=== PATIENT | female | born 1955 | race Caucasian/White ===

== ENCOUNTER 2020-03-08 10:42 | Observation (INO) | payer BC ==
[2020-03-08 12:05] LABS: Basophils # (A) 0.1 k/uL (0-0.2); Basophils % (A) 1 %; Eosinophils # (A) 0.1 k/uL (0-0.7); Eosinophils % (A) 2 %; HGB 14.6 gm/dL (11.4-16.0); Lymphocytes # (A) 1.7 k/uL (1.0-4.8); Lymphocytes % (A) 18 %; MCH 26.1 pg (25.0-35.0); MCHC 32.4 g/dL (31.0-37.0); MCV 80.8 fL (80.0-100.0); Mean Platelet Volume 7.4; Monocytes # (A) 0.5 k/uL (0-1.0); Monocytes % (A) 5 %; Neutrophils % (A) 74 %; Platelet Count 317 k/uL (150-450); RBC 5.57 m/uL (3.80-5.40); RDW 13.4 % (11.5-15.5); WBC 9.6 k/uL (3.8-10.6)
[2020-03-08] MEDS ORDERED: MECLIZINE 12.5 MG TAB PO STA (12:16)
[2020-03-08 12:18] LABS: ALT 21 U/L (4-34); AST 19 U/L (14-36); African American GFR (CKD) >90 (>60 ml/min/1.73 sqM); Albumin 3.9 g/dL (3.5-5.0); Alkaline Phosphatase 108 U/L (38-126); Anion Gap 10 mmol/L; Blood Urea Nitrogen 17 mg/dL (7-17); Calcium 9.1 mg/dL (8.4-10.2); Carbon Dioxide 26 mmol/L (22-30); Chloride 100 mmol/L (98-107); Glucose 322 mg/dL (74-99); Non-African American GFR(CKD) >90 (>60 ml/min/1.73 sqM); Potassium 3.9 mmol/L (3.5-5.1); Sodium 136 mmol/L (137-145); Total Bilirubin 0.6 mg/dL (0.2-1.3); Total Protein 6.4 g/dL (6.3-8.2)
[2020-03-08] MEDS ORDERED: SODIUM CHLORIDE 0.9% 1,000 ML IV ONE (12:41)
[2020-03-08] MEDS ORDERED: DIAZEPAM 5 MG/ML 2 ML INJ IVP STA (12:41)
--- NOTE | 2020-03-08 12:44 | ED ---
Dizziness HPI - General Chief Complaint: Dizziness Stated Complaint: dizzines, nausea Time Seen by Provider: 03/08/20 11:00 Source: patient Mode of arrival: wheelchair Limitations: no limitations - History of Present Illness Initial Comments: 64-year-old female presenting today for chief complaint of dizziness. Patient states that she has had a facial fullness instruments with seasonal ALLERGIES. She states that she feels as though her ears bilaterally are full she woke up this morning with dizziness when she moves her head proceed to standing position she denies lightheadedness or presyncope she states that she feels like she is going to fall and she walks but does not have a unsteady gait. She states she just does not like walking secondary to sensation of dizziness. She states she does feel like the room is spinning around her. Patient states there is associated nausea denies vomiting denies any headache diplopia vision loss or changes. She denies any sensation deficits of the upper or lower extremities weakness of the upper or lower extremities speech changes facial expression changes. Patient denies any recent falls or trauma to the head or neck. Patient denies additional complaints. Upon arrival she appears well there is no signs of acute distress. - Related Data Home Medications Medication Instructions Recorded Confirmed Azelastine HCl [Astepro] 1 spray NASAL DAILY 03/08/20 03/08/20 Cyclobenzaprine HCl 20 mg PO HS 03/08/20 03/08/20 Digest Spectrum 2 tab PO DAILY 03/08/20 03/08/20 Fluticasone Nasal [place] [Flonase 2 spr EA NOSTRIL DAILY 03/08/20 03/08/20 Nasal [place]] Levalbuterol Hfa Inhaler [Xopenex 1 puff INHALATION RT-Q6H PRN 03/08/20 03/08/20 Hfa Inhaler] Montelukast [Singulair] 10 mg PO HS 03/08/20 03/08/20 Multivitamin Ritual 2 tab PO DAILY 03/08/20 03/08/20 Naproxen Sodium [Aleve] 220 mg PO BID 03/08/20 03/08/20 Omeprazole 40 mg PO DAILY 03/08/20 03/08/20 Sodium Chloride [[place]] 1 spray EA NOSTRIL DAILY 03/08/20 03/08/20 Triamterene-Hctz 37.5-25Mg 1 cap PO DAILY 03/08/20 03/08/20 [Dyazide 37.5-25 Capsule] Allergies Allergy/AdvReac Type Severity Reaction Status Date / Time Penicillins Allergy Rash/Hives Verified 03/08/20 12:54 Review of Systems ROS Statement: Those systems with pertinent positive or pertinent negative responses have been documented in the HPI. ROS Other: All systems not noted in ROS Statement are negative. Past Medical History Past Medical History: Hypertension, Osteoarthritis (OA) History of Any Multi-Drug Resistant Organisms: None Reported Past Surgical History: Section, Cholecystectomy, Tonsillectomy Additional Past Surgical History / Comment(s): sinus surgery Past Psychological History: No Psychological Hx Reported Smoking Status: Never smoker Past Alcohol Use History: Occasional Past Drug Use History: None Reported General Exam - General Exam Comments Initial Comments: General: The patient is awake and alert, in no distress Eye: +3 mm pupils are equal, round and reactive to light, extra-ocular movements are intact. No nystagmus. There is normal conjunctiva bilaterally. No signs of icterus. Ears, nose, mouth and throat: There are moist mucous membranes and no oral lesions. TM WNL b/l. Some cerumen in the EAC. Neck: The neck is supple, there is no tenderness or JVD. Cardiovascular: There is a regular rate and rhythm. No murmur, rub or gallop is appreciated. Respiratory: Lungs are clear to auscultation, respirations are non-labored, breath sounds are equal. No wheezes, stridor, rales, or rhonchi. Musculoskeletal: Normal ROM, no tenderness. Strength 5/5. Sensation intact. Radial pulses equal bilaterally 2+. Neurological: A&O x 3. CN II-XII intact, There are no obvious motor or sensory deficits. Speech is normal.Conner-Hallpike manuever did not elicit nystagmus. No pronator drift noted to the lower extremities. Patient has smooth and coordinated heel to monge and finger to nose b/l. Memory intact. Sensation and strength intact of the UE and LE b/l. Skin: Skin is warm and dry and no rashes or lesions are noted. Psychiatric: Cooperative, appropriate mood & affect, normal judgment. Limitations: no limitations Course Vital Signs 03/08/20 03/08/20 10:54 11:53 Temperature 97.6 F Pulse Rate 93 89 Respiratory 18 16 Rate Blood Pressure 138/85 152/87 O2 Sat by Pulse 97 98 Oximetry - Reevaluation(s) Reevaluation #1: critical value from radiologist reported: hypodensity age indeterminate of the right frontal/temporal lobe. Recommend MRI. I discussed this value immediately with my attending Dr. Martinez. 03/08/20 12:43 Reevaluation #2: 03/08/20 13:[address] Chávez the neurologist who reviewed the CT personally, he states he did not have significant concern for acute process but did recommend. Brain MR wo contrast for better evaluation. EKG Findings - EKG Comments: EKG Findings:: Ventricular rate 85 bpm, UT interval 178 ms, QRS duration 96 no Cytotec to T-System QTC 412/490 ms. This is normal sinus rhythm there is no ST elevation or depression. Nonspecific T wave abnormality. No specific findings. Medical Decision Making - Medical Decision Making 64yo female presenting today for cc of dizzines, nausea. + facial and ear fullness. Dizziness increases with head movement. No nystagmus was elicited on examination. No focal neurological deficits. Patient CT has finding of right frontal temporal hypodensity. This does not appear to clinically correlate patient's symptoms neurology was contacted he personally reviewed CT and recommended MR and admission Patient agreeable to admission and care plan as is my attending provider Dr. Martinez who reviewed patient EKG, CT and spoke with admitting provider for [facility]. - Lab Data Result diagrams: 03/08/20 11:16 03/08/20 11:16 Lab Results 03/08/20 03/08/20 03/08/20 Range/Units 11:16 11:16 11:16 WBC 9.6 (3.8-10.6) k/uL RBC 5.57 H (3.80-5.40) m/uL Hgb 14.6 (11.4-16.0) gm/dL Hct 45.0 (34.0-46.0) % MCV 80.8 (80.0-100.0) fL MCH 26.1 (25.0-35.0) pg MCHC 32.4 (31.0-37.0) g/dL RDW 13.4 (11.5-15.5) % Plt Count 317 (150-450) k/uL Neutrophils % 74 % Lymphocytes % 18 % Monocytes % 5 % Eosinophils % 2 % Basophils % 1 % Neutrophils # 7.0 (1.3-7.7) k/uL Lymphocytes # 1.7 (1.0-4.8) k/uL Monocytes # 0.5 (0-1.0) k/uL Eosinophils # 0.1 (0-0.7) k/uL Basophils # 0.1 (0-0.2) k/uL Sodium 136 L (137-145) mmol/L Potassium 3.9 (3.5-5.1) mmol/L Chloride 100 (98-107) mmol/L Carbon Dioxide 26 (22-30) mmol/L Anion Gap 10 mmol/L BUN 17 (7-17) mg/dL Creatinine 0.31 L (0.52-1.04) mg/dL Est GFR (CKD-EPI)AfAm >90 (>60 ml/min/1.73 sqM) Est GFR (CKD-EPI)NonAf >90 (>60 ml/min/1.73 sqM) Glucose 322 H (74-99) mg/dL Calcium 9.1 (8.4-10.2) mg/dL Total Bilirubin 0.6 (0.2-1.3) mg/dL AST 19 (14-36) U/L ALT 21 (4-34) U/L Alkaline Phosphatase 108 (38-126) U/L Troponin I <0.012 (0.000-0.034) ng/mL Total Protein 6.4 (6.3-8.2) g/dL Albumin 3.9 (3.5-5.0) g/dL Disposition Clinical Impression: Elevated glucose, Brain lesion, Dizziness, Nausea Disposition: ADMITTED IP TO THIS HOSP Condition: Stable Is patient prescribed a controlled substance at d/c from ED?: No Referrals: Linda Watters MD [Primary Care Provider] - 1-2 days Time of Disposition: 13:20 Decision to Admit Reason: Admit from EC Decision Date: 03/08/20
--- NOTE | 2020-03-08 12:45 | CT ---
EXAMINATION TYPE: CT brain wo con DATE OF EXAM: 03/08/2020 HISTORY: Dizziness. CT DLP: 1095.4 mGycm. Automated Exposure Control for Dose Reduction was Utilized. TECHNIQUE: CT scan of the head is performed without contrast. COMPARISON: None FINDINGS: There is a subtle focal asymmetric hypodense area in the region of the frontotemporal lobe junction o n the right (201:37). There is no acute intracranial hemorrhage, midline shift, or mass effect identi fied. The ventricles, sulci, and cisterns are normal in size and configuration. No extra-axial fluid collection. Bones and extracranial soft tissues are intact. The globes are gross ly symmetric. Visualized sinuses and mastoid air cells are clear. IMPRESSION: Subtle focal asymmetric hypodensity of the right frontotemporal lobe, which may represent age-indeter minate infarct. Follow-up MRI examination of the brain is recommended. Dr. Clementine Hinojosa discussed findings with Mirtha Cao PA-C, on 03/08/2020at 12:42 PM via the tommie ne, and results were acknowledged.
[2020-03-08] MEDS ORDERED: NALOXONE 0.4 MG/ML 1 ML VIAL IV PRN (13:05)
[2020-03-08 14:39] LABS: Glucose,Whole Blood 244 mg/dL (75-99)
[2020-03-08 15:39] LABS: Appearance,Urine Clear (Clear); Bilirubin,Urine Negative (Negative); Blood,Urine Negative (Negative); Color,Urine Light Yellow; Glucose,Urine (UA) 4+ (Negative); Leukocyte Esterase,Urine Negative (Negative); Nitrite,Urine Negative (Negative); Protein,Urine Negative (Negative); Specific Gravity,Urine 1.017 (1.001-1.035); Urobilinogen,Urine <2.0 mg/dL (<2.0)
[2020-03-08 15:51] LABS: Ketones,Urine 2+ (Negative)
--- NOTE | 2020-03-08 17:01 | MR ---
EXAMINATION TYPE: MR brain wo con DATE OF EXAM: 03/08/2020 COMPARISON: CT brain today HISTORY: Brain hypodensity Multiplanar multiecho imaging of the brain was performed without contrast. There is mild cerebral atrophy. There is no mass effect nor midline shift. There is no sign of intrac ranial hemorrhage. There is no evidence of cerebral edema. Brar-white matter structures have fairly n ormal signal pattern. There is no evidence of cortical infarct. Diffusion images are fairly normal. T he corpus callosum is intact. The brainstem is intact. Sella turcica appears normal. Cerebellum is in tact. There is no evidence of posterior fossa mass. Specifically there is no evidence of infarct or edema in the right parietal lobe. IMPRESSION: Mild cerebral atrophy. No evidence of cerebral infarct.
[2020-03-08] MEDS ORDERED: ALBUTEROL NEBULIZED 2.5 MG/3 ML INHALATION PRN (19:45)
[2020-03-08] MEDS ORDERED: MONTELUKAST 10 MG TAB PO SCH (21:00)
[2020-03-08] MEDS ORDERED: NAPROXEN 250 MG TAB PO SCH (21:00)
[2020-03-08] MEDS ORDERED: CYCLOBENZAPRINE 10 MG TAB PO SCH (21:00)
[2020-03-08 21:07] LABS: Glucose,Whole Blood 269 mg/dL (75-99)
[2020-03-08] MEDS: NAPROXEN 250 MG TAB PO SCH (21:44)
[2020-03-08] MEDS: INSULIN ASPART (NovoLOG) 100 UNIT/ML VIAL SQ SCH (21:45)
[2020-03-08] MEDS: HEPARIN SODIUM,PORCINE 5,000 UNIT/ML 1 ML VIAL SQ SCH (21:45)
[2020-03-08] MEDS: MECLIZINE 12.5 MG TAB PO SCH (21:45)
[2020-03-08] MEDS: ASPIRIN 81 MG PO SCH (21:45)
--- NOTE | 2020-03-08 21:46 | US ---
EXAMINATION TYPE: US carotid duplex BILAT DATE OF EXAM: 03/08/2020 COMPARISON: CT/MR brain CLINICAL HISTORY: dizziness. EXAM MEASUREMENTS: RIGHT: Peak Systolic Velocity (PSV) cm/sec ----- Right CCA: 84.3 ----- Right ICA: 92.7 ----- Right ECA: 94.0 ICA/CCA ratio: 1.1 RIGHT: End Diastole cm/sec ----- Right CCA: 15.1 ----- Right ICA: 31.8 ----- Right ECA: 20.2 LEFT: Peak Systolic Velocity (PSV) cm/sec ----- Left CCA: 101.7 ----- Left ICA: 79.8 ----- Left ECA: 95.3 ICA/CCA ratio: 0.8 LEFT: End Diastole cm/sec ----- Left CCA: 21.5 ----- Left ICA: 30.3 ----- Left ECA: 11.1 VERTEBRALS (direction of flow): Right Vertebral: Antegrade Left Vertebral: Antegrade Rhythm: Normal Mild intimal wall thickening is noted at bilateral carotid bifurcation, but PSV is wnl bilaterally. I ncidental finding is noted of hyperechoic, solid right thyroid nodule = 1.1 x 0.8 x 1.4cm and bilater al heterogeneous thyroid gland. IMPRESSION: The images and measurements suggest less than 20% stenosis in both internal carotid arteries. There i s antegrade flow in the vertebral arteries. Criteria for Assigning % of Stenosis / Diameter reduction (Estimation based on the indirect measurements of the internal carotid artery velocities (ICA PSV). 1. Normal (no stenosis)=ICA PSV < 125 cm/s: ratio < 2.0: ICA EDV<40 cm/s. 2. Less than 50% stenosis=ICA PSV < 125 cm/s: ratio < 2.0: ICA EDV<40 cm/s. 3. 50 to 69% stenosis=ICA PSV of 125 to 230 cm/s: ration 2.0 ? 4.0: ICA EDV 40-100 cm/s. 4. Greater than 70% stenosis to near occlusion= ICA PSV > 230 cm/s: ratio > 4.0: ICA EDV > 100 cm/s. 5. Near occlusion= ICA PSV velocities may be low or undetectable: variable ratio and ICA EDV. 6. Total occlusion=unable to detect flow.
--- NOTE | 2020-03-08 22:03 | HP ---
HISTORY AND PHYSICAL DATE OF SERVICE: 03/08/2020 CHIEF COMPLAINTS: Dizziness and gait dysfunction. HISTORY OF PRESENT ILLNESS: This is a 64-year-old woman with a past medical history of hypertension, history of DJD, history of section, cholecystomy, being followed Dr. Linda Watters in the outpatient setting, apparently woke up last night. The patient was extremely dizzy and dizziness. This morning the patient woke up and was lightheaded. The patient also had an episode of presyncope. The patient came to [facility] and was admitted for further evaluation and treatment. The room was spinning, according to her. Initial CT scan showed suspicious subacute frontal infarct; however, an MRI done subsequently showed mild cerebral atrophy, no evidence of evidence of any infarct. The patient is being closely monitored at this time. The patient was also found to have uncontrolled diabetes mellitus with glucose 322. There is no history of any fever, rigor or chills. No history of headache, loss of consciousness, seizures at this time. There is no evidence of diabetic ketoacidosis. Co2 is normal. PAST MEDICAL HISTORY: Hypertension, DJD, history of section, history of cholecystectomy. HOME MEDICATIONS: 1. Multivitamins 1 p.o. daily. 2. Xopenex q.6 p.r.n. 3. Digest. 4. Astepro 1 spray daily. 5. [place]. 6. Aleve 220 mg p.o. daily. 7. Dyazide 1 p.o. daily. 8. Omeprazole. 9. Singulair. 10.Flonase. 11.Cyclobenzaprine. Doses are reviewed. ALLERGIES: PENICILLIN. FAMILY HISTORY: No history of heart disease or strokes in the family. SOCIAL HISTORY: Patient is a retired teacher. No history of smoking. No history of alcohol intake. REVIEW OF SYSTEMS: ENT: No diminished hearing. No diminished vision. CARDIOVASCULAR SYSTEM: As mentioned earlier. RESPIRATORY SYSTEM: As mentioned earlier. GI: No nausea, vomiting. : No dysuria or retention. NERVOUS SYSTEM: As mentioned earlier. ALLERGY/IMMUNOLOGY: No asthma, hayfever. MUSCULOSKELETAL: As mentioned earlier. HEMATOLOGY/ONCOLOGY: No history of anemia. ENDOCRINE: No history of diabetes, hypothyroidism. CONSTITUTIONAL: As mentioned earlier. DERMATOLOGY: Negative. RHEUMATOLOGY: Negative. PSYCHIATRY: As mentioned earlier. PHYSICAL EXAMINATION: Patient alert and oriented x3. Pulse 90, blood pressure 155/82, respirations 16, temperature 97.6, pulse ox 97% on room air. HEENT: Conjunctivae normal. Oral mucosa moist. NECK: No jugular venous distention. No carotid bruit. No lymph node enlargement. CARDIOVASCULAR SYSTEM: S1, S2 muffled. RESPIRATORY SYSTEM: Breath sounds diminished at the bases. A few scattered rhonchi and crackles. ABDOMEN: Soft, non-tender. No mass palpable. LEGS: No edema. No swelling. NERVOUS SYSTEM: Higher functions as mentioned earlier. Moves all 4 limbs. No focal motor or sensory deficit. LYMPHATICS: No lymph node palpable in neck, axillae or groin. SKIN: No ulcer, rash, bleeding. JOINTS: No active deforming arthropathy. LABS: CBC noted. Sodium 136. Glucose noted. ASSESSMENT: 1. Dizziness and vertigo for evaluation; possible benign positional vertigo. 2. Rule out transient ischemic attack. 3. Diabetes mellitus, type 2, uncontrolled with hyperglycemia. 4. Hyponatremia. 5. Hypertension. 6. History of degenerative joint disease. 7. History of section. 8. History of cholecystectomy. 9. Obesity with body mass index of 36.6. 10.FULL CODE. RECOMMENDATIONS AND DISCUSSION: In this 64-year-old woman who presented with multiple complex medical issues, we will monitor the patient closely, continue the current medications, continue with symptomatic treatment. I recommend antiplatelet agents and DVT prophylaxis. Symptomatic treatment with meclizine. Neurology consultation. Patient also requires ENT evaluation. Otherwise I would recommend a 2D echo, carotid Doppler and also recommend Accu-Cheks before meals and at bedtime. Repeat labs. Hemoglobin A1c. We will continue with insulin scale and continue to monitor. Prognosis guarded because of the multiple complex medical issues. Further recommendations to follow. A copy of this dictation is being forwarded to Dr. Linda Watters, who is the primary physician. Home medications also will be continued. MMODL / IJN: [id number] / [facility]
[2020-03-09 01:36] LABS: Glucose,Whole Blood 271 mg/dL (75-99)
[2020-03-09 05:46] VITALS: BP 118/77; PULSE 71; RESP 17; TEMP 97.7
[2020-03-09 07:14] LABS: Glucose,Whole Blood 233 mg/dL (75-99)
[2020-03-09] MEDS ORDERED: PANTOPRAZOLE 40 MG TABLET PO SCH (07:30)
[2020-03-09 08:03] LABS: Basophils # (A) 0.1 k/uL (0-0.2); Basophils % (A) 1 %; Eosinophils # (A) 0.2 k/uL (0-0.7); Eosinophils % (A) 2 %; HCT 43.5 % (34.0-46.0); HGB 13.8 gm/dL (11.4-16.0); Lymphocytes # (A) 3.1 k/uL (1.0-4.8); Lymphocytes % (A) 39 %; MCH 25.3 pg (25.0-35.0); MCHC 31.7 g/dL (31.0-37.0); Mean Platelet Volume 7.2; Monocytes # (A) 0.5 k/uL (0-1.0); Monocytes % (A) 6 %; Neutrophils % (A) 51 %; Platelet Count 342 k/uL (150-450); RBC 5.44 m/uL (3.80-5.40); RDW 13.7 % (11.5-15.5)
[2020-03-09] MEDS: INSULIN ASPART (NovoLOG) 100 UNIT/ML VIAL SQ SCH ×2 (08:10→11:34)
[2020-03-09] MEDS: ASPIRIN 81 MG PO SCH (08:11)
[2020-03-09] MEDS: HEPARIN SODIUM,PORCINE 5,000 UNIT/ML 1 ML VIAL SQ SCH (08:11)
[2020-03-09] MEDS: NAPROXEN 250 MG TAB PO SCH (08:12)
[2020-03-09] MEDS: MECLIZINE 12.5 MG TAB PO SCH (08:12)
[2020-03-09 08:18] LABS: African American GFR (CKD) >90 (>60 ml/min/1.73 sqM); Anion Gap 6 mmol/L; Blood Urea Nitrogen 17 mg/dL (7-17); Carbon Dioxide 30 mmol/L (22-30); Chloride 100 mmol/L (98-107); Cholesterol 219 mg/dL (<200); Glucose 245 mg/dL (74-99); HDL Cholesterol 42 mg/dL (40-60); LDL Cholesterol,Calculated 123 mg/dL (0-99); Non-African American GFR(CKD) >90 (>60 ml/min/1.73 sqM); Potassium 3.8 mmol/L (3.5-5.1); Sodium 136 mmol/L (137-145); Triglycerides 272 mg/dL (<150)
[2020-03-09] MEDS ORDERED: MULTIVITAMINS, THERA 1 EACH TAB PO SCH (09:00)
[2020-03-09] MEDS ORDERED: AZELASTINE 137MCG/SPRAY NASAL SCH (09:00)
[2020-03-09] MEDS ORDERED: TRIAMTERENE-HCTZ 37.5-25MG 1 EACH CAP PO SCH (09:00)
[2020-03-09] MEDS ORDERED: FLUTICASONE 50MCG/SPRAY NASAL 16GM EA NOSTRIL SCH (09:00)
[2020-03-09 11:12] LABS: Glucose,Whole Blood 401 mg/dL (75-99)
--- NOTE | 2020-03-09 13:55 | DS ---
DISCHARGE SUMMARY FINAL DIAGNOSES: 1. Dizziness and vertigo, possible benign positional vertigo. 2. Transient ischemic attack unlikely. 3. Diabetes mellitus type 2 uncontrolled with hyperglycemia. 4. Hyponatremia. 5. Hypertension. 6. History of degenerative joint disease. 7. History of section. 8. History of cholecystectomy. 9. Obesity, body mass of 36.6. 10.FULL CODE. DISCHARGE DISPOSITION: The patient will be discharged in stable condition with guarded prognosis. Recommend follow up outpatient with Neurology and as well as ENT. HISTORY OF PRESENT ILLNESS: This 64-year-old woman with past medical history of multiple medical problems admitted with dizziness and possible benign positional vertigo. Patient treated symptomatically. Patient improved significantly. For blood sugars, metformin will be started otherwise. On exam, vitals signs stable. Cardiovascular: S1, S2. Abdomen soft. Nervous system: No focal deficits. DISCHARGE ADVICE AND MEDICATION: 1. Diet is cardiac diet. 2. Activity limited until followup. 3. Aleve p.r.n. 4. Astepro as before. 5. Flexeril 10 mg q.h.s. 6. Dyazide 1 p.o. daily. 7. Fluticasone daily. 8. Multivitamins. 9. . 10.Omeprazole 40 mg daily. 11.Singulair 10 mg q.h.s. 12.Xopenex as before. 13.Antivert 12.5 mg t.i.d. and p.r.n. 14.Glucophage 500 mg p.o. b.i.d. 15.Follow up with Dr. Watters in 2-3 days. 16.Follow up with Neurology as recommended. Once again, the patient discharged in stable condition with guarded prognosis. MMODL / IJN: [id number] /
[2020-03-09 18:20] LABS: Hemoglobin A1C 14.4 % (4.0-6.0)
--- NOTE | 2020-03-10 13:41 | ECHOF ---
Referral Reason:dizziness MEASUREMENTS -------- HEIGHT: 165.1 cm WEIGHT: 99.8 kg BP: 118/77 IVSd: 1.3 cm (0.6 - 1.1) LVIDd: 3.5 cm (3.9 - 5.3) LVPWd: 1.3 cm (0.6 - 1.1) IVSs: 1.7 cm LVIDs: 2.5 cm LVPWs: 1.7 cm LA Diam: 3.1 cm (2.7 - 3.8) RVIDd: 2.9 cm (< 3.3) LAESV Index (A-L): 20.41 ml/m Ao Diam: 3.1 cm (2.0 - 3.7) AV Cusp: 1.9 cm (1.5 - 2.6) EPSS: 1.6 cm MV E Jakub: 0.79 m/s MV DecT: 268 ms MV A Jakub: 0.92 m/s MV E/A Ratio: 0.86 MV EF SLOPE: 26.64 mm/s (70 - 150) MV EXCURSION: 12.69 mm (> 18.000) FINDINGS -------- Sinus rhythm. This was a technically adequate study. The left ventricular size is normal. There is mild concentric left ventricular hypertrophy. Overa ll left ventricular systolic function is normal with, an EF between 60 - 65 %. The right ventricle is normal in size. Normal LA size by volume 22+/-6 ml/m2. The right atrium is normal in size. Lipomatous Hypertrophy of the atrial septum is present The aortic valve is trileaflet and appears structurally normal. Trace to mild aortic regurgitation. The mitral valve is normal. The tricuspid valve appears structurally normal. There is no pulmonic regurgitation present. The aortic root size is normal. Normal inferior vena cava with normal inspiratory collapse consistent with estimated right atrial pre ssure of 5 mmHg. There is no pericardial effusion. CONCLUSIONS -------- 1. Sinus rhythm. 2. The left ventricular size is normal. 3. There is mild concentric left ventricular hypertrophy. 4. Overall left ventricular systolic function is normal with, an EF between 60 - 65 %. 5. Lipomatous Hypertrophy of the atrial septum is present 6. The aortic valve is trileaflet and appears structurally normal. 7. Trace to mild aortic regurgitation. 8. There is no pericardial effusion. GRADUATE STUDENT INSTRUCTOR: Hortensia Kaplan RDCS
== END 2020-03-09 11:42 | disposition home or self-care (01) ==
LOC: EC 10:42 → 5NMEDONC 13:37 → 4SSUR 15:29 → 5NMEDONC 15:34
PROVIDERS: ADMIT Hospitalist; ATTEND Hospitalist
DX: E11.65 Type 2 diabetes mellitus with hyperglycemia (principal); G93.9 Disorder of brain, unspecified; R42 Dizziness and giddiness; I10 Essential (primary) hypertension; M19.90 Unspecified osteoarthritis, unspecified site; Z90.49 Acquired absence of other specified parts of digestive tract; Z98.890 Other specified postprocedural states; G31.9 Degenerative disease of nervous system, unspecified; E87.1 Hypo-osmolality and hyponatremia; E66.9 Obesity, unspecified; Z68.36 Body mass index [BMI] 36.0-36.9, adult; Z79.1 Long term (current) use of non-steroidal anti-inflammatories (NSAID); Z79.84 Long term (current) use of oral hypoglycemic drugs; Z79.899 Other long term (current) drug therapy; Z88.0 Allergy status to penicillin
CPT/HCPCS: 96372 ×2; 96361; 96374; 99285; 36415; 93005; 93306; 80061; 80053; 80048; 84484; 85025 ×2; 81003; 83036; 93880; 70450; 70551; G0378 ×2; U0003; J1644 ×2; J3360